=== PATIENT | male | born 1960 | race Caucasian/White ===

== ENCOUNTER 2016-10-17 09:52 | Emergency (ER) | payer OTHER, MEDICARE ==
[~2016-10-17] VITALS: Ht 177.8 cm; Wt 88.5 kg
[2016-10-17 10:00] VITALS: BP 135/80
--- NOTE | 2016-10-17 10:53 | ED NECK/BACK PAIN COMPLAINT ---
History of Present Illness General Chief Complaint: Neck/Upper Back Pain/Injury Stated Complaint: NECK AND BACK PAIN Source: patient, old records Exam Limitations: no limitations Vital Signs & Intake/Output Vital Signs & Intake/Output Vital Signs Date Time Temp Pulse Resp B/P Pulse O2 O2 Flow FiO2 Ox Delivery Rate 10/17 1000 97.1 58 18 135/80 99 Room Air Allergies Coded Allergies: No Known Allergies (10/17/16) Reconcile Medications Carvedilol 25 MG TABLET 1 TAB PO BID HEART (Reported) Clonazepam 1 MG TABLET 1 TAB PO BID PANIC ATTACKS (Reported) Cyclobenzaprine HCl 5 MG TABLET 1 TAB PO TIDPRN PRN PAIN Lisinopril 40 MG TABLET 1 TAB PO DAILY HEART (Reported) Oxycodone HCl/Acetaminophen (Percocet 5-325 MG Tablet) 5 MG-325 MG TABLET 1 TAB PO TID PRN PAIN Rosuvastatin Calcium (Crestor) 10 MG TABLET 1 TAB PO DAILY CHOLESTEROL ( Reported) Trazodone HCl 50 MG TABLET 1 TAB PO QPM PRN SLEEP (Reported) Triage Note: PT STATES THAT HE HAS CHRONIC NECK AND BACK PROBLEMS AND THAT HE FELL FRIDAY, SLIPPED ON ICE. COMPLAINS OF NECK PAIN. STATES THAT HE HAS NOT BEEN TAKING PAIN MEDS, STATES THAT HE MOVED HERE FROM [place] AND CAN'T GET ANYONE TO PRSCRIBE Triage Nurses Notes Reviewed? yes Onset: Abrupt Duration: day(s): (6), constant Timing: recent history Quality/Severity: moderate, severe, ACHING Location: C-spine Radiation: none Context: FALL Method of Injury: fall Loss of Consciousness: no loss of consciousness Modifying Factors: movement, pain medication, rest Associated Symptoms: DENIES HPI: 56-year-old male with history of chronic neck and back pain for which she was in pain management presents after he sustained a fall when he slipped in the snow 6 days ago complaining of persistent bilateral neck pain that has been constant since. He denies hitting his head there is no loss of consciousness. He's been taking [id number] pain medicine without improvement. He states he's been out of pain management since coming back from [place]. He denies any other injury denies any exacerbation of his lower back pain no abdominal pain chest pain shortness of breath arm or leg pain Past History Travel History Traveled to [facility] past 21 day No Medical History Any Pertinent Medical History? 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 No Review of Systems Review of Systems Constitutional: Reports: see HPI. All Other Systems: Reviewed and Negative Comments Review of systems: See HPI, All other systems negative. Constitutional, no chills no fever, no malaiseno weight loss HEENT: No no sore throat no congestion, no ear pain Cardiovascular: No chest pain , no palpitation Skin, no rashes, no change in skin Respiratory: No dyspnea no cough no sputum GI: No nausea no vomiting, no diarrhea, no bloating/constipation : No dysuria No hematuria, no frequency, Muscle skeletal: No joint pain, no joint swelling, Chronic back pain, neck pain , Neurologic: No numbness no confusion, no headache Psych: No stress Heme/endocrine: No bruising no bleeding no polyuria Immunology: No lymphadenopathy Physical Exam Physical Exam General Appearance: well developed/nourished, no apparent distress, alert Neck: full range of motion, normal alignment Comments: Well-developed well-nourished patient in no apparent distress. HEENT: Atraumatic, extraocular motion intact Neck: Supple, FROM, atraumatic bilateral paracervical muscle tenderness palpation no midline tenderness Back: FROM, Nontender atraumatic Cardiovascular: Regular rate and rhythms no murmurs rubs or gallops, Respiratory: Chest nontender.There were no bony deformities, no asymmetry. No respiratory distress. Patient speaking in full complete sentences. Breath sounds clear to auscultation bilaterally: NO W/R/R Extremities: full range of motion 5 out of 5 open cut examiner strength upper extremities Neuro: Alert and oriented x3 Skin: Warm & dry;No appreciable rash on exposed skin Psych: Mood affect normal, normal memory normal judgment. Progress Differential Diagnosis: C spine injury, herniated disc, myofascial strain, ich Plan of Care: Orders Procedure Date/time Status Durable Medical Equipment 10/17 1203 Active Patient medicated with Percocet CAT scan ordered Discussed with the patient his CAT scan findings information was provided for her care and pain management follow-up with soft collar was given to the patient as well as prescription for Percocet Flexeril and discussed them to use caution as this is highly addictive and to make him drowsy no driving or drinking while taking this he feels comfortable to plan to return anytime sooner with any concerns (GERALD HARTMAN,CHAYO) Diagnostic Imaging: Viewed by Me: CT Scan. Discussed w/RAD: CT Scan. Radiology Impression: PATIENT: EKATERINA JACOME PRESENT AGE: 56 PATIENT ACCOUNT NO: [id number] : 58 LOCATION: [facility] ORDERING PHYSICIAN: CHAYO HARTMAN SERVICE DATE: 10/17/16 EXAM TYPE: CAT - CT CERV SPINE WO IV CONTRAST EXAMINATION: CT CERVICAL SPINE WITHOUT CONTRAST CLINICAL INFORMATION: Pain after fall COMPARISON: None. TECHNIQUE: Axial imaging with coronal and sagittal reformatted images. FINDINGS: Hardware from C4 to C6. No evidence for acute fracture or dislocation. Degenerative changes are noted. IMPRESSION: Hardware cervical spine. Intact. No acute fracture or dislocation. DICTATED BY: MARYAN DUBON MD DATE/TIME DICTATED:10/17/161147 CASE HARDENER:JENSEN DATE/TIME TRANSCRIBED:10/17/161147 CONFIDENTIAL, DO NOT COPY WITHOUT APPROPRIATE AUTHORIZATION. <Electronically signed in Other Vendor System> SIGNED BY: MARYAN DUBON MD 10/17/16 1154 Departure Departure Time of Disposition: 1202 Disposition: HOME OR SELF CARE Condition: Stable Clinical Impression Primary Impression: Cervical strain Secondary Impressions: Fall Referrals: PRESTON CUEVAS DO, MD,SABINO Purdy UNKNOWN (PCP/Family) Additional Instructions: Follow-up with primary care physician Dr. cuevas, and pain management dr crowley. Percocet for pain Flexeril as directed you were prescribed a narcotic use caution as this medication is highly addictive and will make you drowsy use for breakthrough pain only. No driving, drinking alcohol or operating machinary when taking. Departure Forms: Customer Survey General Discharge Information Prescriptions: Current Visit Scripts Oxycodone HCl/Acetaminophen (Percocet 5-325 MG Tablet) 1 TAB PO TID PRN PAIN #10 TAB Cyclobenzaprine HCl 1 TAB PO TIDPRN PRN PAIN #12 TAB
[2016-10-17] MEDS ORDERED: LISINOPRIL40 M1 PO (11:06)
[2016-10-17] MEDS ORDERED: CLONAZEPAM1 M2 PO (11:06)
[2016-10-17] MEDS ORDERED: TRAZODONE HCL50 M1 PO (11:07)
[2016-10-17] MEDS ORDERED: CARVEDILOL25 M1 PO (11:07)
[2016-10-17] MEDS ORDERED: CRESTOR10 M1 PO (11:07)
--- NOTE | 2016-10-17 11:54 | CT SCAN REPORT ---
EXAMINATION: CT CERVICAL SPINE WITHOUT CONTRAST CLINICAL INFORMATION: Pain after fall COMPARISON: None. TECHNIQUE: Axial imaging with coronal and sagittal reformatted images. FINDINGS: Hardware from C4 to C6. No evidence for acute fracture or dislocation. Degenerative changes are noted. IMPRESSION: Hardware cervical spine. Intact. No acute fracture or dislocation.
[2016-10-17] MEDS ORDERED: PERCOCET 5-3251 EACH PO (12:03)
[2016-10-17] MEDS ORDERED: CYCLOBENZAPRINE5 M2 PO (12:03)
== END 2016-10-17 12:11 ==
LOC: ERH 09:52
DX: S16.1XXA Strain of muscle, fascia and tendon at neck level, initial encounter (principal); W00.0XXA Fall on same level due to ice and snow, initial encounter

== ENCOUNTER 2016-11-02 10:24 | Emergency (ER) | payer OTHER, MEDICARE ==
[~2016-11-02] VITALS: Ht 175.3 cm; Wt 86.2 kg
[~2016-11-02 10:24] MED LIST: CARVEDILOL25 M1 PO; CLONAZEPAM1 M2 PO; CRESTOR10 M1 PO; CYCLOBENZAPRINE5 M2 PO; LISINOPRIL40 M1 PO; PERCOCET 5-3251 EACH PO; TRAZODONE HCL50 M1 PO
[2016-11-02 10:29] VITALS: BP 165/91
--- NOTE | 2016-11-02 10:35 | ED PSYCHIATRIC COMPLAINT ---
History of Present Illness General Chief Complaint: Psychiatric Related Complaint Stated Complaint: SIB DR. JACKSON FOR PSYCH REFERRAL & KLONOPIN REFILL Source: patient Exam Limitations: no limitations Vital Signs & Intake/Output Vital Signs & Intake/Output Vital Signs Date Time Temp Pulse Resp B/P Pulse O2 O2 Flow FiO2 Ox Delivery Rate 11/02 1136 98 11/02 1029 97.5 59 18 165/91 96 Room Air Room Air Allergies Coded Allergies: No Known Allergies (10/17/16) Reconcile Medications Carvedilol 25 MG TABLET 1 TAB PO BID HEART (Reported) Clonazepam 1 MG TABLET 1 TAB PO BID PANIC ATTACKS (Reported) Clonazepam (Klonopin) 1 MG TABLET 1 TAB PO BID PRN ANXIETY Cyclobenzaprine HCl 5 MG TABLET 1 TAB PO TIDPRN PRN PAIN Lisinopril 40 MG TABLET 1 TAB PO DAILY HEART (Reported) Methylprednisolone. (Medrol) 4 MG TAB.DS.PK 1 DP PO AD CERVICAL RADICULOPATYHY 6 on day 1 then reduce by one tablet daily until gone Oxycodone HCl/Acetaminophen (Percocet 5-325 MG Tablet) 5 MG-325 MG TABLET 1 TAB PO TID PRN PAIN Rosuvastatin Calcium (Crestor) 10 MG TABLET 1 TAB PO DAILY CHOLESTEROL ( Reported) Trazodone HCl 50 MG TABLET 1 TAB PO QPM PRN SLEEP (Reported) Triage Note: TRIAGE: 56 Y/O MALE PRESENTS WITH COMPLAINT REGARDING LACK OF PILLS, MEDICAID, AND MEDICARE INSURANCE ISSUES. "THEY JUST GAVE ME A COURTESY CALL TO SEE HOW I WAS DOING BECAUSE I WAS JUST HERE A FEW WEEKS AGO AFTER A SLIP AND FALL. SHE CONNECTED ME TO DR JACKSON. HE'S ON FROM 9A-9PM AND HE WOULD GIVE ME A BRUIDGE FOR THE KLONOPIN FOR 5 DAYS AND A REFERRAL TO A MENT[facility] PLACE." DENIES UICIDALITY OR HOMICIDALITY. Triage Nurses Notes Reviewed? yes Onset: Abrupt Duration: week(s): Timing: recent history HPI: 11/02/16 11:22 AM There is a 56-year-old male presents to the emergency department complaining of unable to access psychiatrist. The patient states that he has a history of bipolar disorder, post traumatic stress disorder, and anxiety disorder. He is been on Klonopin 1 mg twice a day. He also has chronic neck pain and is requesting a Medrol Dosepak. He says this is helped him in the past. The onset of the symptoms were abrupt, the duration has been for weeks, the severity is significant; as his symptoms required him to come to the emergency department for care. He declines requesting to speak with crisis today. He has no homicidal or suicidal ideation. He was given the contact information to follow- up with the [facility] on Friday. He was told that he can call my office number should he have problems accessing [facility]. He was also given a prescription of 10 1 mg Klonopin tablets. He was also given a Medrol Dosepak. Past History Travel History Traveled to [place] past 21 day No Medical History Any Pertinent Medical History? 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 No Review of Systems Review of Systems Constitutional: Denies: fever. EENTM: Denies: visual changes. Respiratory: Denies: short of breath. Cardiovascular: Denies: chest pain. GI: Denies: abdominal pain. Genitourinary: Reports: no symptoms. Musculoskeletal: Reports: neck pain. Skin: Denies: rash. Neurological/Psychological: Reports: depressed. Hematologic/Endocrine: Reports: no symptoms. Physical Exam Physical Exam General Appearance: alert, awake, anxious, mild distress Head: atraumatic, normal appearance Eyes: Bilateral: normal appearance, PERRL, EOMI. Ears, Nose, Throat: normal pharynx, normal ENT inspection Neck: limited range of motion, in soft collar Respiratory: normal breath sounds, chest non-tender, no respiratory distress Cardiovascular: regular rate/rhythm Gastrointestinal: soft, non-tender Extremities: normal range of motion Neurological/Psychiatric: no motor/sensory deficits, awake, alert, anxious Appearance/Memory/Insight: appropriate appearance Behavoir/Eye Contact/Speech: cooperative Thoughts/Hallucinations: no apparent hallucination SAD PERSONS SAD PERSONS Response Value Male Sex? yes 1 Previous Attempts/Psych Care yes 1 Social Support? has support 0 Total 2 SAD PERSONS Done? yes, patient not suicidal Progress Differential Diagnosis: depression, bipolar disorder, cervical radiculopathy, anxiety, posttraumatic stress syndrome Plan of Care: Follow-up at IOP. Departure Departure Disposition: HOME OR SELF CARE Condition: Stable Clinical Impression Primary Impression: Bipolar disorder Secondary Impressions: Anxiety, Cervical radiculopathy Referrals: UNKNOWN Departure Forms: Customer Survey General Discharge Information Prescriptions: Current Visit Scripts Clonazepam (Klonopin) 1 TAB PO BID PRN ANXIETY #10 TAB Methylprednisolone. (Medrol) 1 DP PO AD #1 DP 6 on day 1 then reduce by one tablet daily until gone
[2016-11-02] MEDS ORDERED: MEDROL4 M2 PO (11:26)
[2016-11-02] MEDS ORDERED: KLONOPIN1 M1 PO (11:26)
== END 2016-11-02 11:30 ==
LOC: ERH 10:24
DX: F31.9 Bipolar disorder, unspecified (principal); F41.9 Anxiety disorder, unspecified; M54.12 Radiculopathy, cervical region